=== PATIENT | female | born 1960 | race African-American/Black ===

== ENCOUNTER 2017-10-11 08:14 | Emergency (ER) | payer BC ==
[~2017-10-11] VITALS: Ht 157.5 cm; Wt 72.1 kg
[~2017-10-11 08:14] MED LIST: LOSA100T14 PO; METH85CR TP
[2017-10-11 10:22] VITALS: BP 117/80
== END 2017-10-11 11:42 | disposition left against medical advice (07) ==
LOC: ER 09:55
DX: M25.561 Pain in right knee (principal); I10 Essential (primary) hypertension; F17.200 Nicotine dependence, unspecified, uncomplicated; Z90.710 Acquired absence of both cervix and uterus; Z98.890 Other specified postprocedural states
CPT/HCPCS: 99281